=== PATIENT | female | born 1995 | race Caucasian/White ===

== ENCOUNTER 2017-02-07 00:14 | Emergency (ER) | payer MEDICAID ==
[~2017-02-07] VITALS: Ht 167.6 cm; Wt 90.7 kg
--- NOTE | 2017-02-07 00:14 | NUR ---
Patient BIBA ACLS, transferred to bed 2. RN evaluating patient at bedside.
[2017-02-07 00:20] VITALS: BP 97/51
--- NOTE | 2017-02-07 00:20 | NUR ---
PATIENT IS A 21 Y/O FEMALE WHO PRESENTS TO THE ED C/O ETOH. FRIEND STATES, "WE WERE OUT PARTYING AND SHE FELL OVER WHEN SHE STARTED TO VOMIT." PT IN NO VISIBLE SIGNS OF PAIN. NO SIGNS OF CP, SOB, NOTED VOMITING IN ED, NO SIGNS OF NAUSEA/DIARRHEA. PT SLEEPING, UNABLE TO ASSESS MENTATION, RR EVEN/UNLABORED. PT REPOSITIONED FOR COMFORT, BED IN LOWEST POSITION. ER MD DR. VILLEGAS NOTIFIED. WILL CONTINUE TO MONITOR.
[2017-02-07] MEDS: ONDANSETRON 4 MG/2 ML VIAL IVP ONE (00:58)
[2017-02-07] MEDS: NACL 0.9% 1,000 ML IV ONE (01:18)
[2017-02-07 01:26] LABS: HEMATOCRIT 34.5 % (36-48); HEMOGLOBIN 11.3 g/dL (12.0-16.0); MEAN CORPUSCULAR HEMOGLOBIN 26 pg (27-31); MEAN CORPUSCULAR HGB CONC 33 g/dL (33-37); MEAN CORPUSCULAR VOLUME 78 fL (80-94); PLATELET COUNT (AUTO) 363 K/uL (140-450); RED BLOOD CELL COUNT(AUTO) 4.42 MIL/uL (4.20-5.40); RED CELL DISTRIBUTION WIDTH 14.2 % (11.6-13.7); WHITE BLOOD COUNT (AUTO) 9.3 K/uL (4.8-10.8)
[2017-02-07 01:30] LABS: ANION GAP 14.2 (8-16); CREATININE 0.6 mg/dL (0.6-1.3); POTASSIUM 3.2 mmol/L (3.5-5.1)
[2017-02-07 01:35] LABS: EOSINOPHILS % (MANUAL) 2 % (0-4); LYMPHOCYTES % (MANUAL) 29 % (20-46); MONOCYTES % (MANUAL) 6 % (5-12)
[2017-02-07 01:36] LABS: ALBUMIN 3.3 g/dL (3.4-5.0); TOTAL BILIRUBIN 0.1 mg/dL (0.0-1.0)
[2017-02-07 04:20] VITALS: BP 97/62
--- NOTE | 2017-02-07 04:20 | NUR ---
Patient discharged with v/s stable. Written and verbal after care instructions given and explained. Patient verbalized understanding. Ambulatory with steady gait. All questions addressed prior to discharge. Advised to follow up with PMD.
== END 2017-02-07 04:20 | disposition home or self-care (01) ==
LOC: MED 00:14
DX: F10.129 Alcohol abuse with intoxication, unspecified (principal)
CPT/HCPCS: 36415; 71010; 80053; 85025; 96361; 96374; 99285; G0482; J2405; J7030; Q0092